=== PATIENT | female | born 1970 | race Two or more races ===

== ENCOUNTER 2017-05-23 14:51 | Emergency (ER) | END 2017-05-23 19:13 | disposition home or self-care (01) ==

== ENCOUNTER 2018-10-23 00:19 | Inpatient (IN) | payer BC ==
[~2018-10-23] VITALS: Ht 170.2 cm; Wt 102.6 kg
[~2018-10-23 00:19] MED LIST: ALBU8.5H8 INH; AMLO-147 PO; BEN25 PO; MED4DP PO; METF-849 PO; OMEG-135 PO; ONDA4TAB13 PO; PRED20TA PO; TAMO10TA20 PO
[2018-10-23] MEDS ORDERED: ACETAMINOPHEN 325 MG TAB PO STA (00:38)
[2018-10-23] MEDS ORDERED: SODIUM CHLORIDE 0.9% 1L BAG IV* STA (00:38)
[2018-10-23] MEDS ORDERED: CEFEPIME 2GM/50 ML (PMX) 50 ML IVPB STA (00:38)
[2018-10-23] MEDS ORDERED: VANCOMYCIN 1 GM (PMX) 250 ML IVPB ONE (01:00)
[2018-10-23] MEDS ORDERED: ALBU4TAB4 PO (02:39)
[2018-10-23] MEDS ORDERED: AMLO1CAP12 PO (02:39)
[2018-10-23] MEDS ORDERED: METF100010 PO (02:39)
[2018-10-23] MEDS ORDERED: ONDANSETRON 4 MG INJ IV PRN ×2 (03:00→05:00)
[2018-10-23] MEDS ORDERED: ACETAMINOPHEN 325 MG TAB PO PRN (03:00)
--- NOTE | 2018-10-23 03:25 | ERD ---
ER Documentation Chief Complaint Chief Complaint shivering, back pain, cough HPI This is a 47-year female comes in position having back pain and chills for the past 2 days patient had increased urination and urgency as well. No nausea no vomiting. No sick contacts. No recent travel. No other current complaints. ROS All systems reviewed and are negative except as per history of present illness. Medications Home Meds Reported Medications Amlodipine Besylate/Benazepril (Amlodipine-Benazepril 10-20 mg) 1 Each Capsule, 1 TAB PO DAILY for 30 Days, #30 10/23/18 Metformin Hcl* (Metformin Hcl*) 1,000 Mg Tablet, 500 MG PO BID TAKE ONE HALF TABLET BY MOUTH TWO TIMES A DAY 10/23/18 Albuterol Sulfate* (Proventil*) 4 Mg Tab, 4 MG PO QID, TAB 10/23/18 Discontinued Reported Medications Tamoxifen Citrate* (Tamoxifen Citrate*) 10 Mg Tab, 10 MG PO BID, TAB 10/02/15 Discontinued Scripts Diphenhydramine Hcl* (Benadryl*) 25 Mg Cap, 25 MG PO Q6, #30 CAP Prov:MANNYJAYJAY ALLEN C 05/23/17 Albuterol Sulfate* (Proair HFA*) 8.5 Gm Hfa.aer.ad, 2 PUFF INH Q4, #1 INHALER Prov:JAYJAY BRYANT 05/23/17 Ondansetron Hcl* (Zofran*) 4 Mg Tab, 4 MG PO Q4H PRN for NAUSEA AND OR VOMITING, #15 TAB Prov:JAYJAY BRYANT 05/23/17 Methylprednisolone* (Medrol* DOSE PACK) 4 Mg/Dose-Pack Tab.ds.pk, 4 MG PO . DIRECTED for 6 Days, PACKET Prov:MANNYOMIJAYJAY C 05/23/17 Albuterol Sulfate* (Proair HFA*) 8.5 Gm Hfa.aer.ad, 2 PUFF INH Q4H PRN for WHEEZING for 30 Days, #1 INHALER Prov:ARCOS,DEEPAK V. SURFACE GRINDER TENDER 10/05/15 Fish Oil* (Fish Oil*) 1,000 Mg Cap, 1000 MG PO BID for 30 Days, CAP Prov:ARCOS,DEEPAK V. SURFACE GRINDER TENDER 10/05/15 Prednisone* (Prednisone*) 20 Mg Tab, 40 MG PO DAILY for 7 Days, TAB take 40mg POX 2 Days then 20mg pox2 days then 10mg POX 2days then 5mg pox2 days, therafter STOP Prov:ARCOS,DEEPAK V. SURFACE GRINDER TENDER 10/05/15 Metformin* (Glucophage*) 500 Mg Tab, 500 MG PO WITH BREAKFAST, #30 TAB Prov:ARCOS,DEEPAK V. SURFACE GRINDER TENDER 10/05/15 Amlodipine Besylate* (Amlodipine Besylate*) 10 Mg Tablet, 10 MG PO DAILY for 30 Days, TAB Prov:ARCOS,DEEPAK V. SURFACE GRINDER TENDER 10/05/15 Allergies Allergies: Coded Allergies: No Known Drug Allergy (Unverified Allergy, Mild, 10/23/18) PMhx/Soc History of Surgery: Yes (R BREAST SURGERY 3 YEARS AGO) Anesthesia Reaction: No Hx Neurological Disorder: No Hx Respiratory Disorders: No Hx Cardiac Disorders: No (HTN, HLD) Hx Psychiatric Problems: No Hx Miscellaneous Medical Probl: No Hx Alcohol Use: No Hx Substance Use: No Hx Tobacco Use: Yes Smoking Status: Former smoker Physical Exam Vitals Vital Signs Date Temp Pulse Resp B/P (MAP) Pulse Ox O2 O2 Flow FiO2 Time Delivery Rate 10/23/18 99.2 100 21 111/63 94 Room Air 03:00 (79) 10/23/18 104.7 00:53 10/23/18 104.8 145 20 140/87 93 00:23 (104) Physical Exam Const: No acute distress Head: Atraumatic Eyes: Normal Conjunctiva ENT: Normal External Ears, Nose and Mouth. Neck: Full range of motion. No meningismus. Resp: Clear to auscultation bilaterally Cardio: Regular rate and rhythm, no murmurs Abd: Soft, non tender, non distended. Normal bowel sounds Skin: No petechiae or rashes Back: No midline or flank tenderness Ext: No cyanosis, or edema Neur: Awake and alert Psych: Normal Mood and Affect Result Diagram: 10/23/180 10/23/18 0040 Results 24 hrs Laboratory Tests Test 10/23/18 00:40 10/23/18 00:43 10/23/18 00:50 10/23/18 00:57 White Blood Count 13.5 10^3/ul Red Blood Count 4.82 10^6/ul Hemoglobin 13.0 g/dl Hematocrit 40.6 % Mean Corpuscular 84.2 fl Volume Mean Corpuscular 27.0 pg Hemoglobin Mean Corpuscular 32.0 g/dl Hemoglobin Concent Red Cell 15.0 % Distribution Width Platelet Count 334 10^3/UL Mean Platelet 8.9 fl Volume Immature 0.600 % Granulocytes % Neutrophils % 80.0 % Lymphocytes % 17.4 % Monocytes % 1.6 % Eosinophils % 0.0 % Basophils % 0.4 % Nucleated Red Blood 0.0 /100WBC Cells % Immature 0.080 10^3/ul Granulocytes # Neutrophils # 10.8 10^3/ul Lymphocytes # 2.3 10^3/ul Monocytes # 0.2 10^3/ul Eosinophils # 0.0 10^3/ul Basophils # 0.1 10^3/ul Nucleated Red Blood 0.0 10^3/ul Cells # Prothrombin Time 12.8 Sec Prothrombin Time 1.0 Ratio INR International 0.95 Normalized Ratio Activated 29.7 Sec Partial Thromboplas t Time Sodium Level 139 mmol/L Potassium Level 4.2 mmol/L Chloride Level 99 mmol/L Carbon Dioxide 28 mmol/L Level Anion Gap 12 Blood Urea Nitrogen 9 mg/dl Creatinine 0.95 mg/dl Est Glomerular > 60 mL/min Filtrat Rate mL/min Glucose Level 191 mg/dl Calcium Level 9.8 mg/dl Total Bilirubin 0.6 mg/dl Direct Bilirubin 0.00 mg/dl Indirect Bilirubin 0.6 mg/dl Aspartate Amino 18 IU/L Transf (AST/SGOT) Alanine 17 IU/L Aminotransferase (A LT/SGPT) Alkaline 66 IU/L Phosphatase Troponin I < 0.012 ng/ml Total Protein 8.4 g/dl Albumin 4.7 g/dl Globulin 3.70 g/dl Albumin/Globulin 1.27 Ratio POC Venous Lactate 3.0 mmol/L Urine Color YELLOW Urine Clarity CLOUDY Urine pH 5.0 Urine Specific 1.013 [place] Urine Ketones NEGATIVE mg/dL Urine Nitrite NEGATIVE mg/dL Urine Bilirubin NEGATIVE mg/dL Urine Urobilinogen NEGATIVE mg/dL Urine Leukocyte 3+ Silvia/ul Esterase Urine Microscopic 12 /HPF RBC Urine Microscopic > 182 /HPF WBC Urine Squamous FEW /HPF Epithelial Cells Urine Bacteria FEW /HPF Urine Hemoglobin 1+ mg/dL Urine Glucose NEGATIVE mg/dL Urine Total Protein 2+ mg/dl POC Beta HCG, NEGATIVE Qualitative Current Medications Medications Dose Sig/Amira Start Time Status Last (Trade) Ordered Route PRN Stop Time Admin Dose Reason Admin Sodium 3,000 ml BOLUS OVER 2 10/23/18 DC 10/23/18 Chloride HOURS STAT 00:38 10/23/18 00:53 (NS) IV* 00:41 650 mg ONCE STAT 10/23/18 DC 10/23/18 Acetaminophen PO 00:38 10/23/18 00:53 (Tylenol 00:41 Tab) Cefepime HCl 50 ml @ ONCE STAT 10/23/18 DC 10/23/18 100 mls/hr IVPB 00:38 10/23/18 00:53 01:07 Vancomycin 250 ml @ ONCE ONCE 10/23/18 DC 10/23/18 HCl 125 mls/hr IVPB 01:00 10/23/18 01:00 02:59 Ondansetron 4 mg BRIDGE ORDER 10/23/18 HCl (Zofran PRN IV 03:00 10/24/18 Inj) NAUSEA/VOMITI 02:59 NG 650 mg ER BRIDGE 10/23/18 Acetaminophen PRN PO 03:00 10/24/18 (Tylenol .MILD PAIN 02:59 Tab) 1-3 OR TEMP Procedures/MDM Emergency department course: Patient seen and evaluated. Sepsis called secondary to vital signs. Patient's infectious symptoms have not stabilized and the patient is at risk of rapid decompensation. The patient will be admitted for careful hydration, antibiotic therapy, and infectious source control. Severe Sepsis Assessment: Infectious Source: Pyleonephritis End organ damage indicated by: [Lactate > 2.0 mmol/L Severe Sepsis Managment: Blood Cultures X 2 before broad spectrum antibiotics initiated within 3 hours of recognition. Sepsis recognized at 12:38 AM 30 ml/kg NS bolus Completed Initial Lactate: 3.0 Repeat Lactate pending Critical Care: Time: 45 minutes, independent of any separately billable procedural time Treatments/Evaluations: Emergent fluid management, while maintaining close respiratory support. Immediate broad spectrum antibiotic therapy. Simultaneous assessment for possible sources in order to direct therapy. Consideration for invasive and chemical support to prevent respiratory or cardiac collapse. Septic Shock Assessment (1 hour post 30 ml/kg fluid bolus): Hypotension (SBP < 90 or 40 mmHg drop, MAP < 65): No Lactic acid > 4.0 no Perfusion Reassessment for Septic Shock: 9.6, pulse 86, respiratory 18, blood pressure 137/47 Heart Exam: Tachycardic Lung Exam: No Crackles Capillary Refill: Delayed Peripheral Pulses: Radially present Skin: Mottled, pale Accepting Care Team: Current data and ongoing care discussed. Time: 2:50 AM Primary Provider: Hospitalist Consulting: Deferred to inpatient team Outstanding Data: none EKG: Rate/Rhythm: Normal Sinus Rhythm QRS, ST, T-waves: No changes consistent w/ acute ischemia Impression: No evidence of ischemia or arrhythmia Chest X-ray 1V Interpreted by me: Soft Tissue: No acute abnormalities Bones: No acute abnormalities Mediastinum/Cardiac Silhouette/Lungs: No acute abnormalities Departure Diagnosis: Primary Impression: Sepsis Sepsis type: sepsis due to unspecified organism Qualified Codes: A41.9 - Sepsis, unspecified organism Condition: Serious ROBIN GAR Oct 23, 2018 03:25
[2018-10-23 04:15] VITALS: Ht 170.2 cm; Wt 102.6 kg
[2018-10-23 04:20] VITALS: BP 121/78; PULSE 92; RESP 20
[2018-10-23] MEDS ORDERED: NITROGLYCERIN (SL) 0.4 MG TAB SL PRN (05:00)
[2018-10-23] MEDS ORDERED: ALBUTEROL/IPRATROPIUM (NEB) 3 ML AMP HHN PRN (05:00)
[2018-10-23] MEDS ORDERED: NACL 0.9% 3 ML SYG IV SCH (05:00)
[2018-10-23] MEDS ORDERED: hydrALAzine 20 MG INJ IV PRN (05:00)
[2018-10-23] MEDS ORDERED: HYDROCODONE/APAP (5/325) TAB PO PRN (05:00)
[2018-10-23] MEDS ORDERED: DOCUSATE SODIUM 100 MG CAP PO PRN (05:00)
[2018-10-23] MEDS ORDERED: LORAZEPAM 2 MG INJ IV PRN (05:00)
[2018-10-23] MEDS ORDERED: MAGNESIUM HYDROXIDE 30ML CUP PO PRN (05:00)
[2018-10-23] MEDS: PIPER-TAZO 3.375 GM IV (PMX) 100 ML IVPB SCH ×3 (05:32→17:16)
[2018-10-23] MEDS: SOD CHLORIDE 0.45% 1,000 ML IV SCH ×2 (05:32→17:18)
[2018-10-23] MEDS: PANTOPRAZOLE (EC) 40 MG TAB PO SCH (06:05)
--- NOTE | 2018-10-23 06:11 | HP ---
Date/Time of Note Date/Time of Note DATE: 10/23/18 TIME: 06:02 Assessment/Plan VTE Prophylaxis SCD applied (from Nsg): No SCD contraindicated: other Pharmacological prophylaxis: heparin Lines/Catheters IV Catheter Type (from Nrsg): Peripheral IV Assessment/Plan Hospital Course Assessment and plan: 47-year female past medical history of erosive gastritis, hypertension, biliary colic, high cholesterol, hemorrhoids, right breast cancer status post surgery and radiation in the past, who comes in with complaints of back pain and chills for the past 2 days, signs of fever and UTI. 1. Low back pain and fever: Symptoms likely secondary to UTI. -We will place patient on broad-spectrum antibiotics, IV fluids, Tylenol PRN pain fevers -Follow-up final culture results, also TSH, A1c, lipid panel -If symptoms worsen, consider ID consult 2. Hypertension: Blood pressure presently stable -Monitor, continue current medication 3. High cholesterol: Follow-up lipid panel 4. History of gastritis: Continue PPI 5. History of right breast cancer: Again status post surgery in the past along with radiation -Monitor for now 6. History of hemorrhoids: Monitor for now Result Diagram: 10/23/18 0040 10/23/18 0040 Results 24hrs Laboratory Tests Test 10/23/18 00:40 10/23/18 00:43 10/23/18 00:50 10/23/18 00:57 White Blood Count 13.5 #H Red Blood Count 4.82 Hemoglobin 13.0 Hematocrit 40.6 Mean Corpuscular Volume 84.2 Mean Corpuscular 27.0 L Hemoglobin Mean Corpuscular 32.0 Hemoglobin Concent Red Cell Distribution 15.0 H Width Platelet Count 334 Mean Platelet Volume 8.9 Immature Granulocytes % 0.600 H Neutrophils % 80.0 H Lymphocytes % 17.4 Monocytes % 1.6 Eosinophils % 0.0 Basophils % 0.4 Nucleated Red Blood 0.0 Cells % Immature Granulocytes # 0.080 H Neutrophils # 10.8 H Lymphocytes # 2.3 Monocytes # 0.2 L Eosinophils # 0.0 Basophils # 0.1 Nucleated Red Blood 0.0 Cells # Prothrombin Time 12.8 Prothrombin Time Ratio 1.0 INR International 0.95 Normalized Ratio Activated 29.7 Partial Thromboplast Time Sodium Level 139 Potassium Level 4.2 Chloride Level 99 Carbon Dioxide Level 28 Anion Gap 12 Blood Urea Nitrogen 9 Creatinine 0.95 Est Glomerular Filtrat > 60 Rate mL/min Glucose Level 191 Calcium Level 9.8 Total Bilirubin 0.6 Direct Bilirubin 0.00 Indirect Bilirubin 0.6 Aspartate Amino 18 Transf (AST/SGOT) Alanine 17 Aminotransferase (ALT/SG PT) Alkaline Phosphatase 66 Troponin I < 0.012 Total Protein 8.4 H Albumin 4.7 Globulin 3.70 H Albumin/Globulin Ratio 1.27 POC Venous Lactate 3.0 *H Urine Color YELLOW Urine Clarity CLOUDY A Urine pH 5.0 Urine Specific [place] 1.013 Urine Ketones NEGATIVE Urine Nitrite NEGATIVE Urine Bilirubin NEGATIVE Urine Urobilinogen NEGATIVE Urine Leukocyte Esterase 3+ H Urine Microscopic RBC 12 H Urine Microscopic WBC > 182 H Urine Squamous FEW Epithelial Cells Urine Bacteria FEW A Urine Hemoglobin 1+ H Urine Glucose NEGATIVE Urine Total Protein 2+ H POC Beta HCG, NEGATIVE Qualitative Test 10/23/18 02:55 Lactic Acid Level 2.1 *H HPI/ROS Admit Date/Time Admit Date/Time Oct 23, 2018 at 02:51 Hx of Present Illness 47-year female past medical history of erosive gastritis, hypertension, biliary colic, high cholesterol, hemorrhoids, right breast cancer status post surgery and radiation in the past, who comes in with complaints of back pain and chills for the past 2 days. Patient has had increased urination and urgency as well. Denies nausea no vomiting, sick contacts, no recent travel. No other current complaints. When she came into the ER today her he UA was positive for UTI and she had positive fever of 104.8, and white blood cell count elevated at 13.5. PMH/Family/Social Past Medical History Medications Current Medications Ondansetron HCl (Zofran Inj) 4 mg BRIDGE ORDER PRN IV NAUSEA/VOMITING; Start 10/23/18 at 03:00; Stop 10/24/18 at 02:59 Acetaminophen (Tylenol Tab) 650 mg ER BRIDGE PRN PO .MILD PAIN 1-3 OR TEMP; Start 10/23/18 at 03:00; Stop 10/24/18 at 02:59 IV Flush (NS 3 ml) 3 ml PER PROTOCOL IV ; Start 10/23/18 at 05:00 Ondansetron HCl (Zofran Inj) 4 mg Q6H PRN IV NAUSEA/VOMITING; Start 10/23/18 at 05:00 Acetaminophen (Tylenol Tab) 650 mg Q6H PRN PO .PAIN 1-3 OR TEMP; Start 10/23/18 at 05:00 Acetaminophen/ Hydrocodone Bitart ([place] (5/325)) 1 tab Q6H PRN PO .MOD PAIN 4- 6; Start 10/23/18 at 05:00 Morphine Sulfate (morphine) 2 mg Q4H PRN IV .SEVERE PAIN 7-10; Start 10/23/18 at 05:00 Docusate Sodium (Colace) 100 mg Q12H PRN PO .CONSTIPATION; Start 10/23/18 at 05: 00 Magnesium Hydroxide (Milk Of Mag) 30 ml DAILY PRN PO .CONSTIPATION; Start 10/23/18 at 05:00 Pantoprazole (Protonix Tab) 40 mg DAILY@06 PO ; Start 10/23/18 at 06:00 Heparin Sodium (Porcine) (Heparin (5000 Units/1ml)) 5,000 unit Q12 SC ; Start 10/23/18 at 09:00 Sodium Chloride 1,000 ml @ 75 mls/hr [id number] IV Last administered on 10/23/18at 05:32; Admin Dose 75 MLS/HR; Start 10/23/18 at 04:46 Lorazepam (Ativan) 0.5 mg Q6H PRN IV ANXIETY; Start 10/23/18 at 05:00 Albuterol/ Ipratropium (Duoneb) 3 ml Q4H RESP THERAPY PRN HHN SHORTNESS OF BREATH; Start 10/23/18 at 05:00 Piperacillin Sod/ Tazobactam Sod 100 ml @ 200 mls/hr Q6 IVPB Last administered on 10/23/18at 05:32; Admin Dose 200 MLS/HR; Start 10/23/18 at 06:00 Hydralazine HCl (Apresoline) 10 mg Q6H PRN IV ELEVATED BLOOD PRESSURE; Start 10/23/18 at 05:00 Nitroglycerin (Nitroglycerin (Sl Tab) 0.4 Mg) 1 tab Q5M PRN SL ANGINA; Start 10/23/18 at 05:00 Coded Allergies: No Known Drug Allergy (Unverified Allergy, Mild, 10/23/18) Past Surgical History Past Surgical Hx: other (Right breast) Social History Alcohol Use: none Smoking Status: Current every day smoker Drug Use: none Exam/Review of Systems Vital Signs Vitals Vital Signs Date Temp Pulse Resp B/P (MAP) Pulse Ox O2 O2 Flow FiO2 Time Delivery Rate 10/23/18 98.9 96 21 118/63 96 Room Air 04:00 (81) Exam Exam GENERAL: lying in bed, no acute distress HEENT: Pupils equal, round, and reactive to light. EOMI. NECK: Supple LUNGS: Clear to auscultation bilaterally, no rales, wheezes or rhonchi. HEART: Regular rate and rhythm, no murmurs, clicks, rubs or gallops. ABDOMEN: Soft, NT, non-distended. Positive bowel sounds in all four quadrants. No rebound or guarding. EXTREMITIES: No lower extremity edema bilaterally NEURO: No focal deficits BA WAGNER Oct 23, 2018 06:11
[2018-10-23] MEDS ORDERED: GLUCOSE GEL 15 GRAM TUBE PO PRN ×2 (07:30)
[2018-10-23] MEDS ORDERED: GLUCAGON 1 MG INJ IM PRN (07:30)
[2018-10-23] MEDS ORDERED: DEXTROSE 50% 50 ML SYRINGE IV PRN ×2 (07:30)
[2018-10-23] MEDS ORDERED: GLUCOSE GEL 15 GRAM TUBE BUCCAL PRN (07:30)
[2018-10-23 08:42] VITALS: BP 110/65; PULSE 77; RESP 17
[2018-10-23] MEDS: NICOTINE (14 MG/24 HR) PATCH TRANSDERM SCH (08:53)
[2018-10-23] MEDS: HEPARIN 5,000 UNIT/1 ML VIAL SC SCH ×2 (08:56→21:11)
[2018-10-23] MEDS: INSULIN ASPART [NOVOLOG] 3 ML PEN SC SCH ×4 (09:00→21:22)
[2018-10-23] MEDS: ACETAMINOPHEN 325 MG TAB PO PRN (10:42)
[2018-10-23] MEDS: morphine 2 MG INJ IV PRN ×3 (10:44→20:00)
[2018-10-23 15:04] VITALS: BP 123/77; PULSE 84; RESP 19
--- NOTE | 2018-10-23 15:04 | PN ---
Date/Time of Note Date/Time of Note DATE: 10/23/18 TIME: 15:01 Assessment/Plan VTE Prophylaxis Risk score (from Ns)>0 risk: 3 SCD applied (from Ns): Yes Pharmacological prophylaxis: heparin Lines/Catheters IV Catheter Type (from Nrs): Peripheral IV Urinary Cath still in place: No Assessment/Plan Hospital Course Assessment and plan 1. Low back pain similar to UTI. Follow-up on cultures. Continue antibiotics. Antipyretics as needed for fever. Analgesics as needed. 2. Hypertension. Monitor. Adjust medications as needed. 3. Hyperlipidemia. Follow-up on fasting lipid panel. 4. History of gastritis. Continue PPI. 5. History of right breast cancer. Patient for outpatient follow-up. Of note patient does have history of surgery in the past along with radiation. 6. Obesity. Weight reduction will be advised. 7 history of hemorrhoids. No active issue noted at this time. Will monitor. Disposition and plan. Continue with antibiotics. Awaiting culture sens itivities. Discussed plan of care with Dr. Duong Result Diagram: 10/23/180 10/23/18 0040 Results 24hrs Laboratory Tests Test 10/23/18 00:40 10/23/18 00:43 10/23/18 00:50 10/23/18 00:57 White Blood Count 13.5 #H Red Blood Count 4.82 Hemoglobin 13.0 Hematocrit 40.6 Mean Corpuscular Volume 84.2 Mean Corpuscular 27.0 L Hemoglobin Mean Corpuscular 32.0 Hemoglobin Concent Red Cell Distribution 15.0 H Width Platelet Count 334 Mean Platelet Volume 8.9 Immature Granulocytes % 0.600 H Neutrophils % 80.0 H Lymphocytes % 17.4 Monocytes % 1.6 Eosinophils % 0.0 Basophils % 0.4 Nucleated Red Blood 0.0 Cells % Immature Granulocytes # 0.080 H Neutrophils # 10.8 H Lymphocytes # 2.3 Monocytes # 0.2 L Eosinophils # 0.0 Basophils # 0.1 Nucleated Red Blood 0.0 Cells # Prothrombin Time 12.8 Prothrombin Time Ratio 1.0 INR International 0.95 Normalized Ratio Activated 29.7 Partial Thromboplast Time Sodium Level 139 Potassium Level 4.2 Chloride Level 99 Carbon Dioxide Level 28 Anion Gap 12 Blood Urea Nitrogen 9 Creatinine 0.95 Est Glomerular Filtrat > 60 Rate mL/min Glucose Level 191 Calcium Level 9.8 Total Bilirubin 0.6 Direct Bilirubin 0.00 Indirect Bilirubin 0.6 Aspartate Amino 18 Transf (AST/SGOT) Alanine 17 Aminotransferase (ALT/SG PT) Alkaline Phosphatase 66 Troponin I < 0.012 Total Protein 8.4 H Albumin 4.7 Globulin 3.70 H Albumin/Globulin Ratio 1.27 POC Venous Lactate 3.0 *H Urine Color YELLOW Urine Clarity CLOUDY A Urine pH 5.0 Urine Specific [place] 1.013 Urine Ketones NEGATIVE Urine Nitrite NEGATIVE Urine Bilirubin NEGATIVE Urine Urobilinogen NEGATIVE Urine Leukocyte Esterase 3+ H Urine Microscopic RBC 12 H Urine Microscopic WBC > 182 H Urine Squamous FEW Epithelial Cells Urine Bacteria FEW A Urine Hemoglobin 1+ H Urine Glucose NEGATIVE Urine Total Protein 2+ H POC Beta HCG, NEGATIVE Qualitative Test 10/23/18 02:55 10/23/18 05:44 10/23/18 07:30 10/23/18 08:39 Lactic Acid Level 2.1 *H 1.6 1.6 Free Thyroxine 0.99 Bedside Glucose 150 Test 10/23/18 09:33 10/23/18 12:05 10/23/18 13:08 Lactic Acid Level 1.8 2.0 Bedside Glucose 135 Subjective 24 Hr Interval Summary Free Text/Dictation Still reports having some back flank pain but better since antibiotic started. Exam/Review of Systems Exam Vitals Vital Signs Date Temp Pulse Resp B/P (MAP) Pulse Ox O2 O2 Flow FiO2 Time Delivery Rate 10/23/18 98.8 11:27 10/23/18 77 17 110/65 94 08:42 (80) 10/23/18 Room Air 04:00 Intake and Output 10/22/18 10/22/18 10/23/18 1515:00 23:00 07:00 IntakeIntake Total 100 ml BalanceBalance 100 ml Constitutional: alert, oriented, obese Psych: nl mood/affect Neck: supple, non-tender Respiratory: clear to auscultation Cardiovascular: regular rate and rhythm Gastrointestinal: soft, tender (on right posterior flank) Musculoskeletal: nl extremities to inspection Neurological: JAIL GUARD II-XII intact, nl mental status, nl speech Results Results 24hrs Laboratory Tests Test 10/23/18 00:40 10/23/18 00:43 10/23/18 00:50 10/23/18 00:57 White Blood Count 13.5 #H Red Blood Count 4.82 Hemoglobin 13.0 Hematocrit 40.6 Mean Corpuscular Volume 84.2 Mean Corpuscular 27.0 L Hemoglobin Mean Corpuscular 32.0 Hemoglobin Concent Red Cell Distribution 15.0 H Width Platelet Count 334 Mean Platelet Volume 8.9 Immature Granulocytes % 0.600 H Neutrophils % 80.0 H Lymphocytes % 17.4 Monocytes % 1.6 Eosinophils % 0.0 Basophils % 0.4 Nucleated Red Blood 0.0 Cells % Immature Granulocytes # 0.080 H Neutrophils # 10.8 H Lymphocytes # 2.3 Monocytes # 0.2 L Eosinophils # 0.0 Basophils # 0.1 Nucleated Red Blood 0.0 Cells # Prothrombin Time 12.8 Prothrombin Time Ratio 1.0 INR International 0.95 Normalized Ratio Activated 29.7 Partial Thromboplast Time Sodium Level 139 Potassium Level 4.2 Chloride Level 99 Carbon Dioxide Level 28 Anion Gap 12 Blood Urea Nitrogen 9 Creatinine 0.95 Est Glomerular Filtrat > 60 Rate mL/min Glucose Level 191 Calcium Level 9.8 Total Bilirubin 0.6 Direct Bilirubin 0.00 Indirect Bilirubin 0.6 Aspartate Amino 18 Transf (AST/SGOT) Alanine 17 Aminotransferase (ALT/SG PT) Alkaline Phosphatase 66 Troponin I < 0.012 Total Protein 8.4 H Albumin 4.7 Globulin 3.70 H Albumin/Globulin Ratio 1.27 POC Venous Lactate 3.0 *H Urine Color YELLOW Urine Clarity CLOUDY A Urine pH 5.0 Urine Specific [place] 1.013 Urine Ketones NEGATIVE Urine Nitrite NEGATIVE Urine Bilirubin NEGATIVE Urine Urobilinogen NEGATIVE Urine Leukocyte Esterase 3+ H Urine Microscopic RBC 12 H Urine Microscopic WBC > 182 H Urine Squamous FEW Epithelial Cells Urine Bacteria FEW A Urine Hemoglobin 1+ H Urine Glucose NEGATIVE Urine Total Protein 2+ H POC Beta HCG, NEGATIVE Qualitative Test 10/23/18 02:55 10/23/18 05:44 10/23/18 07:30 10/23/18 08:39 Lactic Acid Level 2.1 *H 1.6 1.6 Free Thyroxine 0.99 Bedside Glucose 150 Test 10/23/18 09:33 10/23/18 12:05 10/23/18 13:08 Lactic Acid Level 1.8 2.0 Bedside Glucose 135 Medications Medication Current Medications Ondansetron HCl (Zofran Inj) 4 mg BRIDGE ORDER PRN IV NAUSEA/VOMITING; Start 10/23/18 at 03:00; Stop 10/24/18 at 02:59 Acetaminophen (Tylenol Tab) 650 mg ER BRIDGE PRN PO .MILD PAIN 1-3 OR TEMP; Start 10/23/18 at 03:00; Stop 10/24/18 at 02:59 IV Flush (NS 3 ml) 3 ml PER PROTOCOL IV ; Start 10/23/18 at 05:00 Ondansetron HCl (Zofran Inj) 4 mg Q6H PRN IV NAUSEA/VOMITING; Start 10/23/18 at 05:00 Acetaminophen (Tylenol Tab) 650 mg Q6H PRN PO .PAIN 1-3 OR TEMP Last admi nistered on 10/23/18at 10:42; Admin Dose 650 MG; Start 10/23/18 at 05:00 Acetaminophen/ Hydrocodone Bitart ([place] (5/325)) 1 tab Q6H PRN PO .MOD PAIN 4- 6 Last administered on 10/23/18at 09:07; Admin Dose 1 TAB; Start 10/23/18 at 05:00 Morphine Sulfate (morphine) 2 mg Q4H PRN IV .SEVERE PAIN 7-10 Last administered on 10/23/18at 10:44; Admin Dose 2 MG; Start 10/23/18 at 05:00 Docusate Sodium (Colace) 100 mg Q12H PRN PO .CONSTIPATION; Start 10/23/18 at 05:00 Magnesium Hydroxide (Milk Of Mag) 30 ml DAILY PRN PO .CONSTIPATION; Start 10/23/18 at 05:00 Pantoprazole (Protonix Tab) 40 mg DAILY@06 PO Last administered on 10/23/18at 06:05; Admin Dose 40 MG; Start 10/23/18 at 06:00 Heparin Sodium (Porcine) (Heparin (5000 Units/1ml)) 5,000 unit Q12 SC Last administered on 10/23/18at 08:56; Admin Dose 5,000 UNIT; Start 10/23/18 at 09:00 Sodium Chloride 1,000 ml @ 75 mls/hr [id number] IV Last administered on 10/23/18at 05:32; Admin Dose 75 MLS/HR; Start 10/23/18 at 04:46 Lorazepam (Ativan) 0.5 mg Q6H PRN IV ANXIETY; Start 10/23/18 at 05:00 Albuterol/ Ipratropium (Duoneb) 3 ml Q4H RESP THERAPY PRN HHN SHORTNESS OF BREATH; Start 10/23/18 at 05:00 Piperacillin Sod/ Tazobactam Sod 100 ml @ 200 mls/hr Q6 IVPB Last administered on 10/23/18at 12:09; Admin Dose 200 MLS/HR; Start 10/23/18 at 06:00 Hydralazine HCl (Apresoline) 10 mg Q6H PRN IV ELEVATED BLOOD PRESSURE; Start 10/23/18 at 05:00 Nitroglycerin (Nitroglycerin (Sl Tab) 0.4 Mg) 1 tab Q5M PRN SL ANGINA; Start 10/23/18 at 05:00 Nicotine (Nicoderm 14 Mg/ 24hr) 1 patch DAILY TRANSDERM Last administered on 10/23/18at 08:53; Admin Dose 1 PATCH; Start 10/23/18 at 09:00 Diagnostic Test (Pha) (Accu-Chek) 1 ea 02 XX ; Start 10/24/18 at 02:00 Insulin Aspart (Novolog Insulin Pen) NOVOLOG *MILD* ALGORITHM WITH MEALS BEDTIME SC Last administered on 10/23/18at 09:00; Admin Dose 1 UNIT; Start 10/23/18 at 08:00 Miscellaneous Information 1 ea NOTE XX ; Start 10/23/18 at 07:30 Glucose (Glutose) 15 gm Q15M PRN PO DECREASED GLUCOSE; Start 10/23/18 at 07:30 Glucose (Glutose) 22.5 gm Q15M PRN PO DECREASED GLUCOSE; Start 10/23/18 at 07:30 Dextrose (D50w Syringe) 25 ml Q15M PRN IV DECREASED GLUCOSE; Start 10/23/18 at 07:30 Dextrose (D50w Syringe) 50 ml Q15M PRN IV DECREASED GLUCOSE; Start 10/23/18 at 07:30 Glucagon (Glucagen) 1 mg Q15M PRN IM DECREASED GLUCOSE; Start 10/23/18 at 07:30 Glucose (Glutose) 15 gm Q15M PRN BUCCAL DECREASED GLUCOSE; Start 10/23/18 at 07:30 JENNIFER OLIVA NP Oct 23, 2018 15:04
[2018-10-23 20:00] VITALS: BP 132/69; PULSE 99; RESP 18
[2018-10-24] MEDS: PIPER-TAZO 3.375 GM IV (PMX) 100 ML IVPB SCH ×3 (00:07→11:39)
[2018-10-24] MEDS: ACETAMINOPHEN 325 MG TAB PO PRN (00:56)
[2018-10-24 02:00] VITALS: BP 132/73; PULSE 88; RESP 18
[2018-10-24] MEDS ORDERED: ACCU-CHEK XX SCH (02:00)
[2018-10-24] MEDS: PANTOPRAZOLE (EC) 40 MG TAB PO SCH (06:08)
[2018-10-24] MEDS: INSULIN ASPART [NOVOLOG] 3 ML PEN SC SCH ×2 (08:32→11:43)
[2018-10-24] MEDS: HEPARIN 5,000 UNIT/1 ML VIAL SC SCH (08:33)
[2018-10-24] MEDS: NICOTINE (14 MG/24 HR) PATCH TRANSDERM SCH (08:35)
[2018-10-24] MEDS: SOD CHLORIDE 0.45% 1,000 ML IV SCH (08:41)
[2018-10-24 08:46] VITALS: BP 139/79; PULSE 94; RESP 17
[2018-10-24] MEDS ORDERED: CIPR-193 PO (12:08)
--- NOTE | 2018-10-24 12:09 | PDOCDIS ---
Discharge Instructions CONDITION [id number] Patient Condition: [id number] Good HOME CARE INSTRUCTIONS: [id number] Special Diet: [id number] LOW CARB ACTIVITY: [id number] Activity Restrictions: [id number] No Restrictions FOLLOW UP/APPOINTMENTS Follow-up Plan FOLLOW UP WITH YOUR PCP IN 1-2 WEEKS BRYANNA MTZ Oct 24, 2018 12:09
[2018-10-24] MEDS ORDERED: CEFTRIAXONE 1 GM INJ IM ONE (13:00)
[2018-10-24] MEDS ORDERED: CEFTRIAXONE 1 GM/50 ML (PMX) 50 ML IVPB ONE (13:00)
--- NOTE | 2018-10-24 15:37 | DS ---
Date/Time of Note Date/Time of Note DATE: 10/24/18 TIME: 15:31 Discharge Summary Admission/Discharge Info Admit Date/Time Oct 23, 2018 at 02:51 Discharge Date/Time Oct 24, 2018 at 15:04 Discharge Diagnosis 1. Sepsis secondary to UTI-resolved Status post IV antibiotics and IV fluids DC with Cipro Urine culture shows E. coli CT abdomen shows no evidence of pyelonephritis 2. Hypertension Continue home meds 3. Hyperlipidemia Continue meds 4. History of gastritis Continue PPI 5. History of right breast cancer Patient for outpatient follow-up 6. Obesity Lifestyle changes advised 7. Chronic lower back pain likely secondary to muscular pain and tension Patient has chronic lower back pain, etiology is likely secondary to sedentary state and obesity, lifestyle changes advised Patient Condition: Good Hospital Course Patient is a 47-year-old female with history of obesity, dyslipidemia, hypertension, gastritis, breast cancer who presents with malaise, fevers and chills for several days. Patient was noted to be septic secondary to UTI. Urine culture did grow E. coli and patient received IV antibiotics with resolution of sepsis. Patient did report bilateral lower back pain but this is reportedly chronic and likely secondary to her obesity and sedentary lifestyle, CT abdomen showed no evidence of pyelonephritis. Patient was stable for DC to home with oral antibiotics, lifestyle changes were advised. On the day of discharge patient vitals, labs and physical exam are stable. Home Meds Active Scripts Ciprofloxacin Hcl* (Ciprofloxacin Hcl*) 250 Mg Tablet, 250 MG PO BID for 3 Days, #6 TAB Prov:BRYANNA MTZ 10/24/18 Reported Medications Amlodipine Besylate/Benazepril (Amlodipine-Benazepril 10-20 mg) 1 Each Capsule, 1 TAB PO DAILY for 30 Days, #30 10/23/18 Metformin Hcl* (Metformin Hcl*) 1,000 Mg Tablet, 500 MG PO BID TAKE ONE HALF TABLET BY MOUTH TWO TIMES A DAY 10/23/18 Albuterol Sulfate* (Proventil*) 4 Mg Tab, 4 MG PO QID, TAB 10/23/18 Discontinued Reported Medications Tamoxifen Citrate* (Tamoxifen Citrate*) 10 Mg Tab, 10 MG PO BID, TAB 10/02/15 Discontinued Scripts Diphenhydramine Hcl* (Benadryl*) 25 Mg Cap, 25 MG PO Q6, #30 CAP Prov:JAYJAY BRYANT 05/23/17 Albuterol Sulfate* (Proair HFA*) 8.5 Gm Hfa.aer.ad, 2 PUFF INH Q4, #1 INHALER Prov:JAYJAY BRYANT 05/23/17 Ondansetron Hcl* (Zofran*) 4 Mg Tab, 4 MG PO Q4H PRN for NAUSEA AND OR VOMITING, #15 TAB Prov:JAYJAY BRYANT 05/23/17 Methylprednisolone* (Medrol* DOSE PACK) 4 Mg/Dose-Pack Tab.ds.pk, 4 MG PO . DIRECTED for 6 Days, PACKET Prov:JAYJAY BRYANT 05/23/17 Albuterol Sulfate* (Proair HFA*) 8.5 Gm Hfa.aer.ad, 2 PUFF INH Q4H PRN for WHEEZING for 30 Days, #1 INHALER Prov:DEEPAK ARCOS NP 10/05/15 Fish Oil* (Fish Oil*) 1,000 Mg Cap, 1000 MG PO BID for 30 Days, CAP Prov:DEEPAK ARCOS [employer] 10/05/15 Prednisone* (Prednisone*) 20 Mg Tab, 40 MG PO DAILY for 7 Days, TAB take 40mg POX 2 Days then 20mg pox2 days then 10mg POX 2days then 5mg pox2 days, therafter STOP Prov:DEEPAK ARCOS NP 10/05/15 Metformin* (Glucophage*) 500 Mg Tab, 500 MG PO WITH BREAKFAST, #30 TAB Prov:DEEPAK ARCOS [employer] 10/05/15 Amlodipine Besylate* (Amlodipine Besylate*) 10 Mg Tablet, 10 MG PO DAILY for 30 Days, TAB Prov:DEEPAK ARCOS [employer] 10/05/15 Follow-up Plan FOLLOW UP WITH YOUR PCP IN 1-2 WEEKS Primary Care Provider Davina Mejia Time spent on discharge: > 30 minutes BRYANNA MTZ Oct 24, 2018 15:37
== END 2018-10-24 15:04 | disposition home or self-care (01) | DRG 872 ==
LOC: E/R 00:19 → PP2 02:51
PROVIDERS: ADMIT Hospitalist; ATTEND Hospitalist
DX: A41.9 Sepsis, unspecified organism (principal); N39.0 Urinary tract infection, site not specified; I10 Essential (primary) hypertension; Z85.3 Personal history of malignant neoplasm of breast; M54.9 Dorsalgia, unspecified; Z72.0 Tobacco use; E66.9 Obesity, unspecified; Z68.35 Body mass index [BMI] 35.0-35.9, adult; B96.20 Unspecified Escherichia coli [E. coli] as the cause of diseases classified elsewhere
CPT/HCPCS: 71045; 74176; 80048; 80053; 80061; 81001; 81025; 82962; 83036; 83605; 83735; 84100; 84439; 84443; 84484; 85025; 85610; 85730; 87086; 87400; 93005; 96365; 96366; 96368; J0692; J0696; J1644; J1815; J2270; J2543; J3370; J7030